=== PATIENT | female | born 1935 | race Caucasian/White ===

== ENCOUNTER → 2017-10-29 | Outpatient (CLI) | payer OTHER, BC ==
[~2017-10-29] MED LIST: ASPIRIN EC81 M1 PO; CO Q-1010 MG PO; DICLOFENAC SODI75 MG PO; FAMOTIDINE 40 M40 M1 PO; FUROSEMIDE 40 M40 M1 PO; HYDROCODON-ACE1 EACH PO; LEVOTHYROXIN0.125 M1 PO; PREMARIN0.625 MG PO; ZOCOR 20 MG TAB20 M1 PO
== END ==
LOC: RAD 01:18
DX: Z12.31 Encounter for screening mammogram for malignant neoplasm of breast (principal)

== ENCOUNTER → 2018-10-29 | Outpatient (CLI) | payer OTHER, BC | LOC: RAD 01:37 | DX: Z12.31 Encounter for screening mammogram for malignant neoplasm of breast (principal) ==

== ENCOUNTER → 2019-10-31 | Outpatient (CLI) | payer OTHER, BC | LOC: BC 09:02 | DX: Z12.31 Encounter for screening mammogram for malignant neoplasm of breast (principal) ==

== ENCOUNTER → 2021-05-09 | Outpatient (CLI) | payer OTHER, BC | LOC: RAD 12:59 | PROVIDERS: ATTEND Internal Medicine | DX: Z12.31 Encounter for screening mammogram for malignant neoplasm of breast (principal) ==